=== PATIENT | male | born 1955 | race Two or more races ===

== ENCOUNTER → 2017-01-07 | Outpatient (CLI) | payer OTHER ==
[~2017-01-07] VITALS: Ht 172.7 cm; Wt 122.5 kg
== END | disposition home or self-care (01) ==
LOC: Rad HDHVI 07:47
PROVIDERS: ATTEND Internal Medicine Cardiovascular Disease
DX: I10 Essential (primary) hypertension (principal); M19.91 Primary osteoarthritis, unspecified site; G47.9 Sleep disorder, unspecified
CPT/HCPCS: 78452; 93017; 93306; 96374; A9500